=== PATIENT | female | born 1970 | race Caucasian/White ===

== ENCOUNTER 2023-12-30 12:52 | Emergency (ER) | payer OTHER, SELFPAY ==
[2023-12-30 12:53] VITALS: BP 159/99; PULSE 87; RESP 16; TEMP 36.4; O2SAT 97; BMI 31.6
--- NOTE | 2023-12-30 13:16 | EX.ED.DYSGE1 ---
HPI History of Present Illness Chief Complaint: Wound [facility] Medical History (Updated 12/30/23 @ 13:17 by Anju Avitia) Spider bite wound Home Medications ?Medication ?Instructions ?Recorded ?Last Taken ?Type cephalexin 500 mg capsule 500 mg PO TID 10 days #30 caps 12/30/23 Unknown Rx doxycycline monohydrate 100 mg 100 mg PO BID #20 CAPSULES 12/30/23 Unknown Rx capsule penicillin V potassium 500 mg 500 mg PO Q6H 12/30/23 12/30/23 History tablet venlafaxine 75 mg capsule,extended 75 mg PO DAILY 12/30/23 12/30/23 History release 24 hr Allergy/AdvReac Type Severity Reaction Status Date / Time Sulfa (Sulfonamide Allergy Angioedema Verified 12/30/23 13:43 Antibiotics) Surgical History (Updated 12/30/23 @ 13:13 by Anju Avitia) Previous section Previous back surgery Social History Smoking Status: Never smoker EXAM Physical Exam Const Vital Signs: 12/30/23 12:53 Temperature 97.5 F L Temperature Source Oral Pulse Rate 87 Respiratory Rate 16 Blood Pressure 159/99 H Blood Pressure Mean 119 Pulse Ox 97 MDM [facility] MDM Narrative Medical decision making narrative: HISTORY OF PRESENT ILLNESS: 53-year-old female presents with concern for spider bite in October. Shows increased redness on left side. She further states 1 week redness has returned and became worse REVIEW OF SYSTEMS: Pertinent positives: Pain, redness Pertinent negatives: Fever, PHYSICAL EXAM: Nursing triage notes reviewed, Vital signs reviewed Constitutional: please see mdm HENT: MMM Eyes: Pupils equal round and reactive to light, Extraocular muscles intact Neck: No stridor, no JVD, full neck ROM Lungs: Clear to auscultation, No wheezing or rales. No increased work of breathing, no conversational dyspnea, no accessory muscle use, no nasal flaring. No respiratory distress noted Heart: Regular rate and rhythm, No murmurs, No rubs and No gallops, 2+ distal pulses (radial, femoral, posterior tibial) in all extremities Abdomen: Soft, there is no tenderness, rigidity, rebound or guarding, no obvious peritoneal signs, no palpable pulsatile abdominal masses, no auscultated abdominal bruit : No CVAT Extremities: No edema Neuro: No focal neurological deficits, cranial nerves II through XII intact, 5/5 strength in all extremities. Intact sensation to light touch in all extremities, 2+ reflexes bilateral patella tendons. Normal gait. No ataxia. Skin: Ulceration, erythema noted over the left maxilla, no fluctuance induration crepitus or bullae. Area is approximate 2 x 2 cm. It is not particularly warm there is no obvious drainage. There are some TTP. MEDICAL DECISION MAKING: Chief Complaint: Pain and redness MDM Narrative: Patient was hemodynamically stable, afebrile and nontoxic-appearing. Exam with slight confluent erythema noted over the left maxilla. No fluctuance ration crepitus or bullae. No significant TTP. No signs of ear nose or throat involvement. I considered the following differential diagnosis: Abscess, cellulitis, I performed a bedside ultrasound which showed no evidence of deeper abscess. Exam consistent with cellulitis. Will get broad antistrep and anti-MRSA coverage with Bactrim and Keflex. The patient and/or family, caregivers express understanding. The patient and/or family, caregivers agrees with the plan. Shared decision making: I will have a discussion with the patient and or visitors regarding risk/benefits of further testing or admission. They will be made aware of of the risk/benefits inherent in this decision they will be given the opportunity to voice understanding. Total critical care time today provided was at least 0 minutes. This excludes separately billable procedures. Critical care time (if documented) is secondary to the patient having high probability of clinically significant/life threatening deterioration in the patient's condition which required my urgent intervention. Impression: 1. Facial cellulitis 2. Spider bite Dispo: Discharge home This note was generated with [employer] dictation software. It may contain incorrect words, spelling, and punctuation that were not noted in review of the chart prior to signing. Discharge Plan Triage Chief Complaint: Wound ED Provider: Junior Molina Dx/Rx/DC Orders Instructions: Cellulitis Prescriptions: New cephalexin 500 mg capsule 500 mg PO TID 10 Days Qty: 30 0RF doxycycline monohydrate 100 mg capsule 100 mg PO BID Qty: 20 0RF No Action penicillin V potassium 500 mg tablet 500 mg PO Q6H venlafaxine 75 mg capsule,extended release 24hr 75 mg PO DAILY Primary Care Provider: Arcelia Viveros Referrals: Arcelia Viveros MD [Primary Care Provider] - Activity Restrictions/Additional Instructions: Thank you for trusting us with your care today! You may diagnosis facial cellulitis. Please take Tylenol (2 pills, 650 mg), ibuprofen (2 pills, 400 mg) every 6 hours as needed for pain and fever control. Please take antibiotics as prescribed until course complete. Please return to the emergency department if your symptoms change or worsen. Specifically develop fever, vomiting, chills, worsening redness or pain. Please follow with your primary care physician for further outpatient evaluation and management. Print Language: Kazakh Disposition Disposition: Home, Self Care
[2023-12-30] MEDS: Cephalexin 250 MG Capsule 500 MG PO (13:44)
[2023-12-30] MEDS: Doxycycline 100 MG CAPSULE PO (13:53)
== END 2023-12-30 14:55 | disposition home or self-care (01) ==
PROVIDERS: Emergency Provider Emergency Medicine; PCP Family Medicine; Visit Provider Emergency Medicine
DX: L03.211 Cellulitis of face (principal); S00.86XD Insect bite (nonvenomous) of other part of head, subsequent encounter; W57.XXXD Bitten or stung by nonvenomous insect and other nonvenomous arthropods, subsequent encounter
CPT/HCPCS: 99283